=== PATIENT | female | born 2000 | race Caucasian/White ===

== ENCOUNTER 2022-10-24 23:44 | Emergency (ER) | payer MEDICAID, SELFPAY ==
--- NOTE | 2022-10-24 23:51 | W.ED.GENADLT ---
HPI - General Adult General: Chief complaint: Nausea/Vomiting/Diarrhea Stated complaint: N\Diah\ABD Pain\Head Ache Time Seen by Provider: 10/24/22 23:51 History of Present Illness: Ms. Monsalve is a 21-year-old female presenting to the emergency department for generalized illness. She reports onset of symptoms this morning. She reports symptom onset sometime after sex with headache in the left side of her head and behind the right eye, subsequent generalized abdominal discomfort with recurrent episodes of watery diarrhea and generalized malaise. Intensity symptoms is moderate. Course has persisted. Headache is mildly atypical for her however not the worst headache of her life and did not start during sex. Denies focal neurologic deficits. No other specific changes in health, exacerbating, or alleviating factors identified. Onset (ago): hour(s) Severity: moderate Review of Systems General: Reports: 10 or more systems reviewed and unremarkable except in HPI and below PFSH ED PFSH: Medical History (Updated 11/06/22 @ 05:09 by Pablito Pichardo MD) No significant past medical history Surgical History (Updated 11/06/22 @ 05:09 by Pablito Pichardo MD) No significant past surgical history Physical Exam Const: COMMON NORMALS: patient oriented x3 and alert GENERAL APPEARANCE: cooperative and well developed HENMT: COMMON NORMALS: normocephalic and atraumatic HEAD & SCALP: normocephalic and atraumatic THROAT: posterior oropharynx normal Eye: COMMON NORMALS: conjunctivae normal CONJUNCTIVA: Yes conjunctivae normal SCLERA: sclerae normal Neck/C-Spine: COMMON NORMALS: supple and no meningeal signs GENERAL: Yes trachea midline Resp: COMMON NORMALS: normal respiratory effort EFFORT & INSPECTION: Yes able to speak in complete sentences Cardio: COMMON NORMALS: regular rate and regular rhythm RATE: regular rate RHYTHM: regular rhythm GI: COMMON NORMALS: Soft to palpation PALPATION: Yes Soft to palpation, Yes Tenderness to palpation present (GI), No Guarding due to palpation present (GI) and No Rigid due to palpation Extremity: GENERAL: Yes normal exam except as noted and No edema Neuro: COMMON NORMALS: patient oriented x3, CN's II-XII intact bilaterally, moves all extremities, no focal motor deficits and no sensory deficits noted SENSORIUM/ORIENTATION: Yes alert and No Orientation impaired MENINGEAL SIGNS: Yes no meningeal signs Psych: COMMON NORMALS: mental status grossly normal and Normal thought process present THOUGHT PROCESS: Normal thought process present Course Vital Signs: Vital signs: Vital Signs Temperature 100.2 F H 10/25/22 00:01 Pulse Rate 93 10/25/22 03:24 Respiratory Rate 17 10/25/22 03:24 Blood Pressure 134/75 10/25/22 03:24 Pulse Oximetry 96 10/25/22 03:24 Oxygen Delivery Me thod Room Air 10/25/22 02:31 MDM - General Adult Medical Decision Making 21-year-old female presenting due to generalized illness. Patient is nontoxic. No focal deficits. No meningismus. No evidence of acute surgical abdomen. Labs with mild leukocytosis, normal hemoglobin and platelet count. Low magnesium without other significant electrolyte derangement. No UTI. COVID negative. Patient treated with headache cocktail and improved on reassessment with significant improvement in generalized symptoms. She is able to tolerate p.o. intake. I discussed possible imaging options however recommended foregoing imaging given risk of radiation exposure etc and the low likelihood of clinically relevant findings. Patient is comfortable with this. Most likely viral syndrome. The results of ED evaluation were discussed with the patient including prescriptions and/or symptomatic cares (if applicable) including appropriate and responsible use, followup plan, and return precautions. The patient verbalized understanding and felt safe for discharge. Medical Records I reviewed the patient's medical records. Lab Data I reviewed the patient's lab results. 10/25/22 00:30 10/25/22 00:30 Laboratory Results WBC 13.2 10^3/uL (4.0-10.0) H 10/25/22 00:30 RBC 4.81 10^6/uL (4.1-5.3) 10/25/22 00:30 Hgb 13.8 g/dL (11.5-15.3) 10/25/22 00:30 Hct 42.8 % (37.0-47.0) 10/25/22 00:30 MCV 89.0 fl (81-99) 10/25/22 00:30 MCH 28.7 pg (28.0-34.0) 10/25/22 00:30 MCHC 32.2 g/dL (30.0-36.0) 10/25/22 00:30 RDW 13.0 % (12.1-15.1) 10/25/22 00:30 Plt Count 300 10^3/cmm (130-400) 10/25/22 00:30 MPV 9.9 fL (7.4-10.4) 10/25/22 00:30 Neut % (Auto) 85.5 % 10/25/22 00:30 Lymph % (Auto) 6.0 % 10/25/22 00:30 [place] % (Auto) 6.5 % 10/25/22 00:30 Eos % (Auto) 1.4 % 10/25/22 00:30 Baso % (Auto) 0.2 % 10/25/22 00:30 Neut # (Auto) 11.25 10^3/uL (1.8-7.7) H 10/25/22 00:30 Lymph # (Auto) 0.8 10^3/uL (0.8-4.8) 10/25/22 00:30 [place] # (Auto) 0.9 10^3/uL (0.2-0.9) 10/25/22 00:30 Eos # (Auto) 0.2 10^3/uL (0.0-0.8) 10/25/22 00:30 Baso # (Auto) 0.0 10^3/uL (0.0-0.1) 10/25/22 00:30 Nucleated RBC % (auto) 0 % 10/25/22 00:30 Nucleated RBCs # 0.0 /100WBC 10/25/22 00:30 Sodium 139 mmol/L (136-145) 10/25/22 00:30 Potassium 4.0 mmol/L (3.5-5.1) 10/25/22 00:30 Chloride 106 mmol/L (98-107) 10/25/22 00:30 Carbon Dioxide 20 mmol/L (22-29) L 10/25/22 00:30 Anion Gap 17.0 (5-19) 10/25/22 00:30 BUN 10 mg/dL (6-20) 10/25/22 00:30 Creatinine 0.7 mg/dL (0.5-0.9) 10/25/22 00:30 GFR Calculation 105.6 mL/min (90-130) 10/25/22 00:30 Glucose 108 mg/dL (65-115) 10/25/22 00:30 Calculated Osmolality 288 mOsm/kg (285-295) 10/25/22 00:30 Calcium 9.1 mg/dL (8.5-10.5) 10/25/22 00:30 Magnesium 1.5 mg/dL (1.7-2.3) L 10/25/22 00:30 Total Bilirubin 0.3 mg/dL (0.15-1.2) 10/25/22 00:30 AST 15 U/L (0-32) 10/25/22 00:30 ALT 7 U/L (0-33) 10/25/22 00:30 Alkaline Phosphatase 72 U/L (35-105) 10/25/22 00:30 Total Protein 7.1 g/dL (6.6-8.7) 10/25/22 00:30 Albumin 3.9 g/dL (3.5-5.2) 10/25/22 00:30 Globulin 3.2 g/dL (1.3-4.6) 10/25/22 00:30 HCG, Qual Negative (Negative) 10/25/22 00:30 Urine Color Yellow (Yellow) 10/25/22 02:12 Urine Appearance Cloudy (CLEAR) A 10/25/22 02:12 Urine pH 6 (5-7) 10/25/22 02:12 Ur Specific [place] 1.020 (1.005-1.030) 10/25/22 02:12 Urine Protein Neg (Negative) 10/25/22 02:12 Urine Glucose (UA) Norm (Normal) 10/25/22 02:12 Urine Ketones Negative (Negative) 10/25/22 02:12 Urine Blood Neg (Negative) 10/25/22 02:12 Urine Nitrate Negative (Negative) 10/25/22 02:12 Urine Bilirubin Neg (Negative) 10/25/22 02:12 Urine Urobilinogen Neg mg/dL (Negative) 10/25/22 02:12 Ur Leukocyte Esterase Negative (Negative) 10/25/22 02:12 Urine RBC None /hpf (0-2) 10/25/22 02:12 Urine WBC 0-4 /hpf (0-5) H 10/25/22 02:12 Ur Squamous Epith Cells 5-10 /hpf (0-5) H 10/25/22 02:12 Amorphous Sediment 2+ /hpf 10/25/22 02:12 Urine Bacteria 1+ /hpf (NONE) H 10/25/22 02:12 Urine Mucus 2+ /hpf 10/25/22 02:12 SARS-CoV-2 Ag (Rapid) negative (Negative) 10/25/22 01:00 Discharge Plan Discharge Patient Disposition: Home Clinical Impression: Diarrhea, Nausea and vomiting, Headache, Hypomagnesemia Condition: Stable Prescriptions: New ondansetron 4 mg tablet,disintegrating 4 mg PO Q8H PRN (Reason: nausea and vomiting) Qty: 15 0RF Discharge Orders: Discharge ED (Routine); Ordered 10/25/22 Ordered By: Pablito Pichardo Discharge Diet: Advance as tolerated and Clear Liquid Discharge Activity: Increase activity as tolerated Patient Instructions: Gastroenteritis (ED), Acute Headache (ED), Viral Syndrome (ED) Activity Restrictions/Additional Instructions: Thank you for visiting the emergency department. You were seen and evaluated for headache with nausea vomiting and diarrhea as well as abdominal pain. The exact cause of your symptoms is unclear though likely related to viral syndrome or other nonspecific gastrointestinal infection. Given duration of symptoms and clinical exam I do not believe that you need treatment for bacterial infection. The treatment for your symptoms is supportive. Please ensure that you are staying hydrated. You may use [id number] medications such as acetaminophen and ibuprofen for pain however please do not exceed the daily recommended dosage as listed on the packaging and please keep in mind that many namebrand medications contain the same active ingredients. Please avoid these medications if previously instructed to do so by another physician due to other underlying medical condition. Please follow-up with a primary care provider. Return for fevers that do not improve with antipyretic, severe abdominal pain, blood in stool, inability to tolerate oral intake, or anything else that you are concerned about and feel needs emergency department evaluation. Coding Level of Care Code ED Operating Room Coordinator for Osman Quiroz
[2022-10-24 23:56] VITALS: RESP 18; O2SAT 97; BMI 44.4
[2022-10-25 00:01] VITALS: TEMP 37.9
[2022-10-25] MEDS: sodium chloride 0.9% 1,000 ML 999 ML IV (00:36)
[2022-10-25 00:37] LABS: Basophils % 0.2 %; Eosinophils # 0.2 10^3/uL (0.0-0.8); Eosinophils % 1.4 %; Hematocrit 42.8 % (37.0-47.0); Hemoglobin 13.8 g/dL (11.5-15.3); Lymphocytes # 0.8 10^3/uL (0.8-4.8); Mean Corpuscular HGB Conc 32.2 g/dL (30.0-36.0); Mean Corpuscular Hemoglobin 28.7 pg (28.0-34.0); Mean Platelet Volume 9.9 fL (7.4-10.4); Monocytes # 0.9 10^3/uL (0.2-0.9); Monocytes % 6.5 %; Neutrophils # 11.25 10^3/uL (1.8-7.7); Neutrophils % 85.5 %; Nucleated Red Blood Cells % 0 %; Platelet Count 300 10^3/cmm (130-400); Red Blood Count 4.81 10^6/uL (4.1-5.3); White Blood Count 13.2 10^3/uL (4.0-10.0)
[2022-10-25] MEDS: metoclopramide 5 mg/mL SDV 2 mL 10 MG IVP (00:37)
[2022-10-25] MEDS: ketorolac 30 mg/mL INJ 15 MG IVP (00:41)
[2022-10-25 00:45] VITALS: BP 127/61; PULSE 106; O2SAT 99
[2022-10-25 00:46] LABS: HCG, Serum Qual Negative (Negative)
[2022-10-25 00:53] LABS: Alanine Aminotransferase 7 U/L (0-33); Albumin Level 3.9 g/dL (3.5-5.2); Alkaline Phosphatase 72 U/L (35-105); Aspartate Amino Transferase 15 U/L (0-32); Blood Urea Nitrogen 10 mg/dL (6-20); Calcium 9.1 mg/dL (8.5-10.5); Carbon Dioxide 20 mmol/L (22-29); Chloride 106 mmol/L (98-107); Globulin 3.2 g/dL (1.3-4.6); Glomerular Filtration Rate 105.6 mL/min (90-130); Glucose 108 mg/dL (65-115); Magnesium 1.5 mg/dL (1.7-2.3); Osmolality Calculated 288 mOsm/kg (285-295); Sodium 139 mmol/L (136-145); Total Bilirubin 0.3 mg/dL (0.15-1.2); Total Protein 7.1 g/dL (6.6-8.7)
[2022-10-25 01:20] LABS: SARS Covid-2 Antigen negative (Negative)
[2022-10-25] MEDS: magnesium sulfate premix 2 GM/50 ML PIGGYBACK IV (01:22)
[2022-10-25 02:01] VITALS: BP 149/93; PULSE 94; O2SAT 97
[2022-10-25 02:19] LABS: Add Urine Microscopic? YES; Bilirubin Urine Neg (Negative); Blood Urine Neg (Negative); Glucose Urine UA Norm (Normal); Ketones Urine Negative (Negative); Leukocyte Esterase Urine Negative (Negative); Nitrate Urine Negative (Negative); Protein Urine Neg (Negative); Urine Appearance Cloudy (CLEAR); Urine Color Yellow (Yellow); Urobilinogen Urine Neg (Negative); pH Urine 6 (5-7)
[2022-10-25 02:31] VITALS: BP 134/73; PULSE 95; O2SAT 96
[2022-10-25 02:57] LABS: Add Urine Culture? No; Amorphous Sediment Urine 2+ /hpf; Bacteria Urine 1+ /hpf; Mucus Urine 2+ /hpf; WBC Urine 0-4 /hpf (0-5)
[2022-10-25 03:24] VITALS: BP 134/75; PULSE 93; RESP 17; O2SAT 96
== END 2022-10-25 03:27 | disposition home or self-care (01) ==
PROVIDERS: Emergency Provider Emergency Medicine
DX: R51.9 Headache, unspecified (principal); R10.84 Generalized abdominal pain; R19.7 Diarrhea, unspecified
CPT/HCPCS: 80053; 81001; 83735; 84703; 85025; 87426; 96365; 96366; 96375; 99284; J1885; J2765; J3475; J7030

== ENCOUNTER 2024-03-19 18:44 | Emergency (ER) | payer MEDICAID, SELFPAY ==
[2024-03-19 18:58] VITALS: BP 134/83; PULSE 69; RESP 16; TEMP 36.7; O2SAT 95; BMI 45.8
--- NOTE | 2024-03-19 19:17 | USR_ITS ---
PROCEDURE INFORMATION: Exam: US Abdomen, Limited; Right Upper Quadrant Exam date and time: 03/19/2024 8:08 PM Age: 23 years old Clinical indication: Abdominal pain; Other: Ruq; Additional info: Right upper quadrant pain, concern for cholecystitis TECHNIQUE: Imaging protocol: Real time ultrasound of the abdomen with image documentation. Limited exam focused on the right upper quadrant. COMPARISON: No relevant prior studies available. FINDINGS: Liver: Liver mildly enlarged at 17 cm. Hepatic steatosis. Gallbladder: Normal. No gallstones. There is no gallbladder wall thickening. Biliary ducts: Normal. No stones. No dilation. Pancreas: Visualized pancreas is unremarkable. Right kidney: Normal. No mass. No hydronephrosis. US/US gall bladder [id number] IMPRESSION: 1. Negative for cholelithiasis or cholecystitis. 2. Liver mildly enlarged at 17 cm. 3. Hepatic steatosis.
[2024-03-19 19:30] VITALS: BP 132/92; PULSE 70; RESP 16; O2SAT 98
--- NOTE | 2024-03-19 19:32 | W.ED.ABDPA2 ---
HPI - Abdominal Pain General: Chief Complaint: Abdominal Pain Stated Complaint: Pain\Bloating\Upper ABD Time Seen by Provider: 03/19/24 19:14 History of Present Illness: 23-year-old female who presents to the emergency room with abdominal pain. This has been present for months now. Seems to be worse when she eats. She had noticed when her boyfriend was rubbing her belly that it hurt most in her right upper quadrant. She had seen her primary doctor today and had discussed that she also when she was wiping she had passed this down in her stool. She is concerned about her gallbladder and her primary told her that if she was that concerned to go to the emergency room for an ultrasound. She has had some nausea. No vomiting. Related Data Previous Rx's Medication Instructions Recorded ondansetron 4 mg disintegrating 4 mg PO Q8H PRN nausea and 10/25/22 tablet vomiting #15 tabs Allergies Allergy/AdvReac Type Severity Reaction Status Date / Time No Known Allergies Allergy Verified 03/19/24 19:04 Review of Systems Narrative: Constitutional symptoms: Negative except as documented in HPI. Skin symptoms: Negative except as documented in HPI. Eye symptoms: Negative except as documented in HPI. ENMT symptoms: Negative except as documented in HPI. Respiratory symptoms: Negative except as documented in HPI. Cardiovascular symptoms: Negative except as documented in HPI. Gastrointestinal symptoms: Negative except as documented in HPI. Genitourinary symptoms: Negative except as documented in HPI. Musculoskeletal symptoms: Negative except as documented in HPI. Neurologic symptoms: Negative except as documented in HPI. Psychiatric symptoms: Negative except as documented in HPI. Endocrine symptoms: Negative except as documented in HPI. [facility] ED PFSH: Medical History (Updated 11/06/22 @ 05:09 by Pablito Pichardo MD) No significant past medical history Surgical History (Updated 11/06/22 @ 05:09 by Pablito Pichardo MD) No significant past surgical history Physical Exam Narrative: EXAM NARRATIVE: General: Alert, no acute distress. Skin: Warm, dry. Head: Normocephalic, atraumatic. Neck: Supple, trachea midline. Eye: Extraocular movements are intact. Ears, nose, mouth and throat: mucosa moist. Cardiovascular: Regular, Normal peripheral perfusion. Respiratory: Lungs are clear to auscultation, respirations are non-labored, breath sounds are equal, Symmetrical chest wall expansion. Gastrointestinal: Soft, right upper quadrant tenderness, Non distended Musculoskeletal: Normal ROM, no deformity. Neurological: Alert and oriented, No focal neurological deficit observed. Psychiatric: Cooperative, appropriate mood & affect. Course Vital Signs: Vital signs: Vital Signs Temperature 98.1 F 03/19/24 18:58 Pulse Rate 69 03/19/24 19:37 Respiratory Rate 16 03/19/24 19:30 Blood Pressure 132/92 03/19/24 19:30 Pulse Oximetry 97 03/19/24 19:37 Oxygen Delivery Me thod Room Air 03/19/24 19:37 MDM - Abdominal Pain Medical Decision Making Differential diagnosis for patient presenting with right upper quadrant abdominal pain including but not limited to and based on the above HPI, review of systems and physical exam: Cholelithiasis or cholecystitis. Hepatitis. Diverticulitis. Constipation. Ureterolithiasis. Urinary tract infection. Appendicitis. colitis. small bowel obstruction. crohn's flare. pancreatitis. gastritis. peptic ulcer. Aortic disection. Workup including imaging and lab work replaced based on the above differential, history and exam to evaluate differential diagnosis Lab Review: Laboratory results were reviewed and interpreted by myself the emergency room physician. I reviewed the patient's medical record. Reexamination: Lab Data 03/19/24 19:25 03/19/24 19:25 Labs/Radiology: Laboratory Results WBC 9.38 10^3/uL (3.29-11.43) 03/19/24 19:25 RBC 4.93 10^6/uL (3.85-5.65) 03/19/24 19:25 Hgb 14.60 g/dL (11.27-16.99) 03/19/24 19:25 Hct 43.9 % (36-47) 03/19/24 19:25 MCV 89.0 fl (85-98) 03/19/24 19:25 MCH 29.6 pg (27-33) 03/19/24 19:25 MCHC 33.3 g/dL (30-55) 03/19/24 19:25 RDW 12.7 % (12.1-15.1) 03/19/24 19:25 Plt Count 357 10^3/cmm (157-399) 03/19/24 19:25 MPV 10.0 fL (7.4-10.4) 03/19/24 19: Neut % (Auto) 67.0 % 03/19/24 19:25 Lymph % (Auto) 24.4 % 03/19/24 19:25 [place] % (Auto) 5.9 % 03/19/24 19:25 Eos % (Auto) 2.2 % 03/19/24 19:25 Baso % (Auto) 0.2 % 03/19/24: Neut # (Auto) 6.28 10^3/uL (1.8-7.7) 03/19/24 19:25 Lymph # (Auto) 2.3 10^3/uL (0.8-4.8) 03/19/24 19: [place] # (Auto) 0.6 10^3/uL (0.2-0.9) 03/19/24 19:25 Eos # (Auto) 0.2 10^3/uL (0.0-0.8) 03/19/24 19: Baso # (Auto) 0.0 10^3/uL (0.0-0.1) 03/19/24 19:25 Nucleated RBC % (auto) 0 % 03/19/24 19: Nucleated RBCs # 0.0 /100WBC 03/19/24 19:25 Sodium 139 mmol/L (136-145) 03/19/24 19:25 Potassium 3.6 mmol/L (3.5-5.1) 03/19/24 19:25 Chloride 105 mmol/L (98-107) 03/19/24 19:25 Carbon Dioxide 23 mmol/L (22-29) 03/19/24 19:25 Anion Gap 14.6 (5-19) 03/19/24 19:25 BUN 15 mg/dL (6-20) 03/19/24 19:25 Creatinine 0.7 mg/dL (0.5-0.9) 03/19/24 19:25 GFR Calculation 103.7 mL/min (90-130) 03/19/24 19:25 Glucose 103 mg/dL (65-115) 03/19/24 19:25 Calculated Osmolality 289 mOsm/kg (285-295) 03/19/24 19:25 Calcium 9.5 mg/dL (8.5-10.5) 11/21/24 19:25 Total Bilirubin 0.5 mg/dL (0.15-1.2) 03/19/24 19:25 AST 16 U/L (0-32) 03/19/24 19:25 ALT 14 U/L (0-33) 03/19/24 19:25 Alkaline Phosphatase 56 U/L (35-105) 03/19/24 19:25 C-Reactive Protein 3.0 mg/L (0.0-4.9) 03/19/24 19:25 Total Protein 7.3 g/dL (6.6-8.7) 03/19/24 19:25 Albumin 4.4 g/dL (3.5-5.2) 03/19/24 19:25 Globulin 2.9 g/dL (1.3-4.6) 03/19/24 19:25 HCG, Qual Negative (Negative) 03/19/24 19:25 All radiology interpretation(s) finalized by discharge Discharge Plan Discharge Condition: Stable Prescriptions: No Action ondansetron 4 mg tablet,disintegrating 4 mg PO Q8H PRN (Reason: nausea and vomiting) Qty: 15 0RF Referrals: Jovanny Gu MD [Primary Care Provider] - Coding Level of Care Code ED Office Administrator for [employer]ie
[2024-03-19 19:37] VITALS: PULSE 69; O2SAT 97
[2024-03-19 19:40] LABS: Basophils % 0.2 %; Eosinophils # 0.2 10^3/uL (0.0-0.8); Eosinophils % 2.2 %; Hematocrit 43.9 % (36-47); Lymphocytes # 2.3 10^3/uL (0.8-4.8); Lymphocytes % 24.4 %; Mean Corpuscular HGB Conc 33.3 g/dL (30-55); Mean Corpuscular Hemoglobin 29.6 pg (27-33); Monocytes # 0.6 10^3/uL (0.2-0.9); Monocytes % 5.9 %; Neutrophils # 6.28 10^3/uL (1.8-7.7); Nucleated Red Blood Cells % 0 %; Platelet Count 357 10^3/cmm (157-399); Red Blood Count 4.93 10^6/uL (3.85-5.65); Red Cell Distribution Width 12.7 % (12.1-15.1); White Blood Count 9.38 10^3/uL (3.29-11.43)
[2024-03-19 19:48] LABS: HCG, Serum Qual Negative (Negative)
[2024-03-19 19:51] LABS: Alanine Aminotransferase 14 U/L (0-33); Albumin Level 4.4 g/dL (3.5-5.2); Alkaline Phosphatase 56 U/L (35-105); Anion Gap 14.6 (5-19); Aspartate Amino Transferase 16 U/L (0-32); Blood Urea Nitrogen 15 mg/dL (6-20); Calcium 9.5 mg/dL (8.5-10.5); Carbon Dioxide 23 mmol/L (22-29); Chloride 105 mmol/L (98-107); Creatinine Clr Calc Pharmacy 171.8828; Globulin 2.9 g/dL (1.3-4.6); Glomerular Filtration Rate 103.7 mL/min (90-130); Glucose 103 mg/dL (65-115); Osmolality Calculated 289 mOsm/kg (285-295); Potassium 3.6 mmol/L (3.5-5.1); Sodium 139 mmol/L (136-145); Total Bilirubin 0.5 mg/dL (0.15-1.2); Total Protein 7.3 g/dL (6.6-8.7)
--- NOTE | 2024-03-19 20:21 | W.ED.ABDPA2 ---
HPI - Abdominal Pain General: Chief Complaint: Abdominal Pain Stated Complaint: Pain\Bloating\Upper ABD Time Seen by Provider: 03/19/24 19:14 History of Present Illness: 23-year-old female who presents to the emergency room with abdominal pain. This has been present for months now. Seems to be worse when she eats. She had noticed when her boyfriend was rubbing her belly that it hurt most in her right upper quadrant. She had seen her primary doctor today and had discussed that she also when she was wiping she had passed this down in her stool. She is concerned about her gallbladder and her primary told her that if she was that concerned to go to the emergency room for an ultrasound. She has had some nausea. No vomiting. Related Data Previous Rx's Medication Instructions Recorded ondansetron 4 mg disintegrating 4 mg PO Q8H PRN nausea and 10/25/22 tablet vomiting #15 tabs Allergies Allergy/AdvReac Type Severity Reaction Status Date / Time No Known Allergies Allergy Verified 03/19/24 19:04 Review of Systems Narrative: Constitutional symptoms: Negative except as documented in HPI. Skin symptoms: Negative except as documented in HPI. Eye symptoms: Negative except as documented in HPI. ENMT symptoms: Negative except as documented in HPI. Respiratory symptoms: Negative except as documented in HPI. Cardiovascular symptoms: Negative except as documented in HPI. Gastrointestinal symptoms: Negative except as documented in HPI. Genitourinary symptoms: Negative except as documented in HPI. Musculoskeletal symptoms: Negative except as documented in HPI. Neurologic symptoms: Negative except as documented in HPI. Psychiatric symptoms: Negative except as documented in HPI. Endocrine symptoms: Negative except as documented in HPI. [facility] ED PFSH: Medical History (Updated 03/19/24 @ 20:34 by Saundra Garsia MD) No significant past medical history Surgical History (Updated 11/06/22 @ 05:09 by Pablito Pichardo MD) No significant past surgical history Physical Exam Narrative: EXAM NARRATIVE: General: Alert, no acute distress. Skin: Warm, dry. Head: Normocephalic, atraumatic. Neck: Supple, trachea midline. Eye: Extraocular movements are intact. Ears, nose, mouth and throat: mucosa moist. Cardiovascular: Regular, Normal peripheral perfusion. Respiratory: Lungs are clear to auscultation, respirations are non-labored, breath sounds are equal, Symmetrical chest wall expansion. Gastrointestinal: Soft, right upper quadrant tenderness, Non distended Musculoskeletal: Normal ROM, no deformity. Neurological: Alert and oriented, No focal neurological deficit observed. Psychiatric: Cooperative, appropriate mood & affect. Course Vital Signs: Vital signs: Vital Signs Temperature 98.1 F 03/19/24 18:58 Pulse Rate 69 03/19/24 19:37 Respiratory Rate 16 03/19/24 19:30 Blood Pressure 132/92 03/19/24 19:30 Pulse Oximetry 97 03/19/24 19:37 Oxygen Delivery Me thod Room Air 03/19/24 19:37 MDM - Abdominal Pain Medical Decision Making Differential diagnosis for patient presenting with right upper quadrant abdominal pain including but not limited to and based on the above HPI, review of systems and physical exam: Cholelithiasis or cholecystitis. Hepatitis. Diverticulitis. Constipation. Ureterolithiasis. Urinary tract infection. Appendicitis. colitis. small bowel obstruction. crohn's flare. pancreatitis. gastritis. peptic ulcer. Aortic disection. Workup including imaging and lab work replaced based on the above differential, history and exam to evaluate differential diagnosis Lab Review: Laboratory results were reviewed and interpreted by myself the emergency room physician. No leukocytosis. No anemia. No renal failure. test is negative. CRP is negative. Ultrasound gallbladder: No acute process. This was reviewed and interpreted by myself the emergency room physician. I also reviewed the radiology report. I reviewed the patient's medical record. Reexamination: Patient remained stable. No increased work of breathing. No altered mental status. No focal motor deficits. Assessment and plan: Abdominal pain - Discharged home - Discussed plan with patient. Answered any questions. - Evaluation and treatment of this problem were appropriate in the emergency setting. Lab Data 03/19/24 19:25 03/19/24 19:25 Labs/Radiology: Laboratory Results WBC 9.38 10^3/uL (3.29-11.43) 03/19/24 19: RBC 4.93 10^6/uL (3.85-5.65) 03/19/24 19:25 Hgb 14.60 g/dL (11.27-16.99) 03/19/24 19: Hct 43.9 % (36-47) 03/19/24 19:25 MCV 89.0 fl (85-98) 03/19/24 19:25 MCH 29.6 pg (27-33) 03/19/24 19: MCHC 33.3 g/dL (30-55) 03/19/24 19: RDW 12.7 % (12.1-15.1) 03/19/24 19: Plt Count 357 10^3/cmm (157-399) 03/19/24: MPV 10.0 fL (7.4-10.4) 03/19/24: Neut % (Auto) 67.0 % 03/19/24 19: Lymph % (Auto) 24.4 % 03/19/24: [place] % (Auto) 5.9 % 03/19/24: Eos % (Auto) 2.2 % 03/19/24: Baso % (Auto) 0.2 % 03/19/24: Neut # (Auto) 6.28 10^3/uL (1.8-7.7) 03/19/24: Lymph # (Auto) 2.3 10^3/uL (0.8-4.8) 03/19/24: [place] # (Auto) 0.6 10^3/uL (0.2-0.9) 03/19/24: Eos # (Auto) 0.2 10^3/uL (0.0-0.8) 03/19/24: Baso # (Auto) 0.0 10^3/uL (0.0-0.1) 03/19/24: Nucleated RBC % (auto) 0 % 03/19/24: Nucleated RBCs # 0.0 /100WBC 03/19/24 19:25 Sodium 139 mmol/L (136-145) 03/19/24 19:25 Potassium 3.6 mmol/L (3.5-5.1) 03/19/24 19:25 Chloride 105 mmol/L (98-107) 03/19/24 19:25 Carbon Dioxide 23 mmol/L (22-29) 03/19/24 19:25 Anion Gap 14.6 (5-19) 03/19/24 19:25 BUN 15 mg/dL (6-20) 03/19/24 19:25 Creatinine 0.7 mg/dL (0.5-0.9) 03/19/24 19:25 GFR Calculation 103.7 mL/min (90-130) 03/19/24 19:25 Glucose 103 mg/dL (65-115) 03/19/24 19:25 Calculated Osmolality 289 mOsm/kg (285-295) 03/19/24 19:25 Calcium 9.5 mg/dL (8.5-10.5) 03/19/24 19:25 Total Bilirubin 0.5 mg/dL (0.15-1.2) 03/19/24 19:25 AST 16 U/L (0-32) 03/19/24 19:25 ALT 14 U/L (0-33) 03/19/24 19:25 Alkaline Phosphatase 56 U/L (35-105) 03/19/24 19:25 C-Reactive Protein 3.0 mg/L (0.0-4.9) 03/19/24 19:25 Total Protein 7.3 g/dL (6.6-8.7) 03/19/24 19:25 Albumin 4.4 g/dL (3.5-5.2) 03/19/24 19:25 Globulin 2.9 g/dL (1.3-4.6) 03/19/24 19:25 HCG, Qual Negative (Negative) 03/19/24 19:25 All radiology interpretation(s) finalized by discharge Discharge Plan Discharge Patient Disposition: Home Clinical Impression: Abdominal pain Condition: Stable Prescriptions: No Action ondansetron 4 mg tablet,disintegrating 4 mg PO Q8H PRN (Reason: nausea and vomiting) Qty: 15 0RF Discharge Orders: Discharge ED (Routine); Ordered 03/19/24 Ordered By: Saundra Garsia Referrals: Jovanny Gu MD [Primary Care Provider] - Discharge Diet: Advance as tolerated Patient Instructions: Abdominal Pain (ED), Opioid Safety, Pain Management Activity Restrictions/Additional Instructions: Thank you for choosing [facility] for your healthcare needs today. Please realize this is an emergency room and that we are providing you with a medical screening exam and this may not be complete and all inclusive of all the testing and or work up that you may need to determine your ailment or severity of your illness. You have been screened and evaluated and felt safe for discharge. Health conditions do change or evolve sometimes and as such it is important that you follow up with your Primary Doctor to be re checked, 3-5 days is a general good time frame for follow up. You are always welcome to return to the ED for re assessment if your symptoms are worsening or you have new concerns Coding Level of Care Code ED Refinery Operator [employer] for Osman Quiroz
[2024-03-19 21:27] VITALS: BP 147/91; PULSE 96; RESP 16; O2SAT 100
== END 2024-03-19 21:00 | disposition home or self-care (01) ==
PROVIDERS: Emergency Provider Emergency Medicine; PCP Family Medicine
DX: R10.9 Unspecified abdominal pain (principal)
CPT/HCPCS: 76705; 80053; 84703; 85025; 86140; 99284

== ENCOUNTER 2024-05-14 11:45 | Outpatient (CLI) | payer BC, MEDICAID, SELFPAY ==
--- NOTE | 2024-05-14 12:20 | US_ITS ---
WS: [id number] US transvaginal [id number] HISTORY: ABDOMINAL PAIN COMPARISON: None available. Uterus: 9.8 cm x 3.7 cm x 3.4 cm. Normal size anteverted uterus. No fibroid or mass. Endometrium: 0.8 cm. IUD is identified along the central endometrium. The arms are identified extendi ng towards the cornua. Normal position of the IUD. Neither ovary is identified. No adnexal mass. No free fluid in the cul-de-sac. US/US transvaginal [id number] IMPRESSION: 1. Normal position of the IUD. 2. Neither ovary is identified.
== END 2024-05-14 12:13 | disposition home or self-care (01) ==
PROVIDERS: PCP Family Medicine; Visit Provider Family Medicine
DX: R10.9 Unspecified abdominal pain (principal); Z97.5 Presence of (intrauterine) contraceptive device
CPT/HCPCS: 76830